=== PATIENT | female | born 1970 | race Caucasian/White ===

== ENCOUNTER 2016-04-16 14:14 | Outpatient (CLI) | payer MEDICAID | END 2016-04-16 14:15 | disposition home or self-care (01) | DX: Z12.31 Encounter for screening mammogram for malignant neoplasm of breast (principal) ==

== ENCOUNTER 2016-08-12 15:15 | Emergency (ER) | payer MEDICAID ==
[2016-08-12] MEDS ORDERED: DEXAMETHASONE 10 MG/ML VIAL PO STA (15:41)
[2016-08-12] MEDS ORDERED: SODIUM CHLORIDE 0.9% 1,000 ML IV ONE (15:45)
[2016-08-12] MEDS ORDERED: DEXAMETHASONE 10 MG/ML VIAL ONE (15:48)
[2016-08-12] MEDS ORDERED: KETOROLAC 60 MG/2 ML VIAL IVP STA (16:21)
[2016-08-12] MEDS ORDERED: KETOROLAC 30 MG/ML VIAL ONE (16:35)
== END 2016-08-12 17:00 | disposition home or self-care (01) ==
DX: E86.0 Dehydration (principal); S29.011A Strain of muscle and tendon of front wall of thorax, initial encounter; X58.XXXA Exposure to other specified factors, initial encounter; I10 Essential (primary) hypertension; E78.00 Pure hypercholesterolemia, unspecified; K21.9 Gastro-esophageal reflux disease without esophagitis; F17.200 Nicotine dependence, unspecified, uncomplicated

== ENCOUNTER 2017-04-21 09:45 | Outpatient (CLI) | payer MEDICAID ==
--- NOTE | 2017-04-22 18:16 | Mammography Report ---
DATE OF SERVICE: 04/21/2017 DIGITAL SCREENING MAMMOGRAM: 04/21/2017 CLINICAL INDICATION: A 47-year-old for screening. COMPARISON: 04/2016, 08/2013, 07/2012, 08/2010. TECHNIQUE: Routine CC and MLO projections were obtained of the breasts. The breasts again demonstrate scattered fibroglandular densities bilaterally. Coarse and punctate, typically benign calcifications are present. Intramammary lymph nodes are stable. No suspicious masses, clustered microcalcifications, or regions of architectural distortion are identified. IMPRESSION: Benign findings. RECOMMENDATIONS: Routine annual screening unless otherwise clinically indicated. BIRADS category 2 benign findings. STANDARD QUALIFYING STATEMENTS 1. This examination was reviewed with the aid of Computed-Aided Detection (CAD). 2. A negative or benign imaging report should not delay biopsy if clinically suspicious findings are present. Consider surgical consultation if warranted. More than 5% of cancers are not identified by imaging. 3. Dense breasts may obscure an underlying neoplasm. TD: 04/22/2017 19:15
== END 2017-04-21 09:46 | disposition home or self-care (01) ==
LOC: DI 09:45
PROVIDERS: ATTEND Nurse Practitioner Obstetrics & Gynecology
DX: Z12.39 Encounter for other screening for malignant neoplasm of breast (principal)
CPT/HCPCS: 77067

== ENCOUNTER 2017-05-07 11:30 | Outpatient (CLI) | payer MEDICAID ==
[2017-05-07 18:56] LABS: BASOPHILS # (AUTO) 0.1 10^3/uL (0.0-0.1); BASOPHILS % (AUTO) 1.2 %; EOSINOPHILS # (AUTO) 0.2 10^3/uL (0.0-0.7); EOSINOPHILS % (AUTO) 4.4 %; HGB - HEMOGLOBIN 14.5 g/dL (12.0-16.0); LYMPHOCYTES # (AUTO) 2.2 10^3/uL (1.5-3.5); LYMPHOCYTES % (AUTO) 39.3 %; MEAN CORPUSCULAR HGB CONC 32.9 g/dL (32.0-36.0); MEAN CORPUSCULAR VOLUME 103.3 fL (81.0-99.0); MEAN PLATELET VOLUME 8.7 fL (7.9-10.8); MONOCYTES # (AUTO) 0.5 10^3/uL (0.0-1.0); MONOCYTES % (AUTO) 9.8 %; NEUTROPHILS # (AUTO) 2.5 10^3/uL (1.5-6.6); NEUTROPHILS % (AUTO) 45.3 %; PLT - PLATELET COUNT 171 10^3/uL (130-450); RED BLOOD COUNT 4.26 10^6/uL (4.20-5.40); RED CELL DISTRIBUTION WIDTH 15.2 % (12.0-15.0); WHITE BLOOD COUNT 5.6 x10^3/uL (4.8-10.8)
[2017-05-07 19:10] LABS: ALBUMIN 3.8 g/dL (3.2-5.5); ALBUMIN/GLOBULIN RATIO 1.2 (1.0-2.2); ALKALINE PHOSPHATASE 80 IU/L (42-121); ALT ALANINE AMINOTRANSFERASE 47 IU/L (10-60); AST ASPARTATE AMINOTRANSFERASE 40 IU/L (10-42); BILIRUBIN,TOTAL 0.7 mg/dL (0.2-1.0); BUN - BLOOD UREA NITROGEN 9 mg/dL (6-20); CALCIUM 9.2 mg/dL (8.5-10.3); CARBON DIOXIDE - CO2 21 mmol/L (21-32); CHLORIDE 109 mmol/L (101-111); CHOL/HDL RATIO 3.7 (<4.4); CHOLESTEROL 181 mg/dL; CREATININE 0.6 mg/dL (0.4-1.0); GFR - MDRD 107 (>89); GLUCOSE 128 mg/dL (70-100); HDL CHOLESTEROL 49 mg/dL; SODIUM 137 mmol/L (135-145); TOTAL PROTEIN 6.9 g/dL (6.7-8.2)
[2017-05-07 19:30] LABS: LDL CHOLESTEROL,DIRECT 77 mg/dL; LDLD/HDL RATIO 1.6 (<4.4)
== END 2017-05-07 11:31 | disposition home or self-care (01) ==
LOC: LAB.N 11:30
PROVIDERS: ATTEND Nurse Practitioner Gerontology
DX: I10 Essential (primary) hypertension (principal)
CPT/HCPCS: 36415; 80053; 80061; 83721; 85025

== ENCOUNTER 2017-05-28 08:00 | Outpatient (CLI) | payer MEDICAID ==
[2017-05-28 13:05] LABS: HB2 TOTAL 16.5 g/dL; HEMOGLOBIN A1C 0.63 g/dL; HEMOGLOBIN A1C % 5.6 % (4.6-6.2)
== END 2017-05-28 08:01 | disposition home or self-care (01) ==
LOC: LAB.N 08:00
PROVIDERS: ATTEND Nurse Practitioner Gerontology
DX: R73.9 Hyperglycemia, unspecified (principal)
CPT/HCPCS: 36415; 83036

== ENCOUNTER 2018-01-27 12:09 | Outpatient (CLI) | payer MEDICAID ==
[2018-01-27 13:03] LABS: CHOL/HDL RATIO 4.9 (<4.4); CHOLESTEROL 267 mg/dL; HDL CHOLESTEROL 54 mg/dL
[2018-01-27 13:26] LABS: LDL CHOLESTEROL,DIRECT 165 mg/dL; LDLD/HDL RATIO 3.1 (<4.4)
== END 2018-01-27 12:10 | disposition home or self-care (01) ==
LOC: LAB 12:09
PROVIDERS: ATTEND Nurse Practitioner Gerontology
DX: E78.1 Pure hyperglyceridemia (principal)
CPT/HCPCS: 36415; 80061; 83721

== ENCOUNTER 2018-08-12 14:12 | Outpatient (CLI) | payer MEDICAID ==
--- NOTE | 2018-08-15 08:32 | Mammography Report ---
Reason: ANNUAL SCREENING Procedure Date: 08/12/2018 Accession Number: [id number] / [id number] Procedure: JANENE - Screening Mammo Dig Bilat CPT Code: FULL RESULT: EXAM: Screening Mammo Dig Bilat DATE: 08/12/2018 3:18 PM CLINICAL HISTORY: Routine screening. No reported personal or family history of breast cancer. TECHNIQUE: (B) - Bilateral CC and MLO views were obtained. COMPARISON: 04/21/2017 through 07/27/2012 PARENCHYMAL PATTERN: (A) - The breasts demonstrate scattered fibroglandular densities bilaterally. FINDINGS: Bilateral breasts: There are no suspicious masses, calcifications, or areas of distortion. IMPRESSION: Negative examination. BI-RADS category 1. RECOMMENDATION: (ANNUAL) - Recommend routine annual screening mammography. BI-RADS CATEGORY: (1) - Negative. STANDARD QUALIFYING STATEMENTS: 1. This examination was not reviewed with the aid of Computer-Aided Detection (CAD). 2. A negative or benign imaging report should not preclude biopsy if clinically suspicious findings are present. 3. Dense breasts may obscure an underlying neoplasm. 4. This examination was reviewed without the aid of 3D breast imaging (tomosynthesis).
== END 2018-08-12 14:13 | disposition home or self-care (01) ==
LOC: DI 14:12
PROVIDERS: ATTEND Nurse Practitioner Gerontology
DX: Z12.31 Encounter for screening mammogram for malignant neoplasm of breast (principal)
CPT/HCPCS: 77067

== ENCOUNTER 2018-10-20 12:02 | Outpatient (CLI) | payer MEDICAID ==
[2018-10-20 19:22] LABS: CHOL/HDL RATIO 5.9 (<4.4); CHOLESTEROL 259 mg/dL; HDL CHOLESTEROL 44 mg/dL; LDL CHOLESTEROL,CALCULATED 149 mg/dL; LDL/HDL RATIO 3.4 (<4.4); VLDL CHOLESTEROL 66 mg/dL
== END 2018-10-20 23:59 | disposition home or self-care (01) ==
LOC: LAB.N 12:02
PROVIDERS: ATTEND Nurse Practitioner Gerontology
DX: E78.5 Hyperlipidemia, unspecified (principal)
CPT/HCPCS: 36415; 80061; 83721

== ENCOUNTER 2019-11-01 07:00 | Outpatient (CLI) | payer MEDICAID | END 2019-11-01 23:59 | disposition home or self-care (01) | LOC: LAB.R 07:00 | PROVIDERS: ATTEND Nurse Practitioner Family | DX: L02.412 Cutaneous abscess of left axilla (principal) | CPT/HCPCS: 81599; 87070; 87075; 87205 ==

== ENCOUNTER 2020-08-21 14:00 | Outpatient (CLI) | payer MEDICAID ==
[2020-08-22 11:57] LABS: BILIRUBIN,URINE NEGATIVE (NEGATIVE); GLUCOSE, URINE (UA) >=1000 mg/dL (NEGATIVE); KETONES,URINE (UA) NEGATIVE (NEGATIVE); LEUKOCYTE ESTERASE, URINE NEGATIVE (NEGATIVE); NITRITE,URINE NEGATIVE (NEGATIVE); OCCULT BLOOD,URINE NEGATIVE (NEGATIVE); PROTEIN,URINE NEGATIVE (NEGATIVE); UROBILINOGEN,URINE 0.2 (NORMAL) E.U./dL (NORMAL)
[2020-08-22 12:02] LABS: CLARITY,URINE CLEAR (CLEAR)
[2020-08-22 12:08] LABS: BACTERIA,URINE Rare /HPF (None Seen); RBC,URINE None Seen /HPF (0-5); SQUAMOUS EPITHELIAL CELL,UR MANY Squamous (<= Few); WBC,URINE 0-3 /HPF (0-5)
[2020-08-22 22:51] LABS: BACTERIAL VAGINOSIS DNA NEGATIVE (NEGATIVE); CANDIDA GLABRATA DNA NEGATIVE (NEGATIVE); CANDIDA GROUP DNA NEGATIVE (NEGATIVE); CANDIDA KRUSEI DNA NEGATIVE (NEGATIVE); TRICHOMONAS VAGINALIS DNA NEGATIVE (NEGATIVE)
== END 2020-08-21 23:59 | disposition home or self-care (01) ==
LOC: LAB.R 14:00
PROVIDERS: ATTEND Nurse Practitioner Obstetrics & Gynecology
DX: R30.0 Dysuria (principal)
CPT/HCPCS: 81001; 87086; 87661; 87801

== ENCOUNTER 2021-07-03 14:24 | Outpatient (CLI) | payer MEDICAID ==
--- NOTE | 2021-07-04 15:09 | Mammography Report ---
BILATERAL DIGITAL SCREENING MAMMOGRAM 3D/2D: 07/03/2021 CLINICAL: Routine screening. Comparison is made to exams dated: 08/12/2018 mammogram, 04/21/2017 mammogram, and 04/16/2016 mammogram - [facility]. There are scattered fibroglandular elements in both breasts. No significant masses, calcifications, or other findings are seen in either breast. There has been no significant interval change. IMPRESSION: NEGATIVE There is no mammographic evidence of malignancy. A 1 year screening mammogram is recommended. This exam was interpreted at Station ID: [id number]. NOTE: For mammograms, a report in lay terms will be sent to the patient. Approximately 15% of breast malignancies will not be visualized mammographically. In the management of a palpable breast mass, a negative mammogram must not discourage biopsy of a clinically suspicious lesion. Electronically Signed By: Amrit Hankins M.D. ar/penrad:07/03/2021 16:20:25 ACR BI-RADS Category 1: Negative 3341F PARENCHYMAL PATTERN: (A) - The breast(s) demonstrate(s) scattered fibroglandular densities. BI-RADS CATEGORY: (1) - 1 RECOMMENDATION: (ANNUAL) - Recommend routine annual screening mammography. [id number] 1 year screening LATERALITY: (B)
== END 2021-07-03 14:25 | disposition home or self-care (01) ==
LOC: DI.N 14:24
PROVIDERS: ATTEND Nurse Practitioner Obstetrics & Gynecology
DX: Z12.31 Encounter for screening mammogram for malignant neoplasm of breast (principal)

== ENCOUNTER 2022-07-29 09:01 | Outpatient (CLI) | payer MEDICAID ==
[2022-07-29 09:17] LABS: BASOPHILS # (AUTO) 0.1 10^3/uL (0.0-0.1); BASOPHILS % (AUTO) 1.1 %; EOSINOPHILS # (AUTO) 0.3 10^3/uL (0.0-0.7); EOSINOPHILS % (AUTO) 2.9 %; HCT - HEMATOCRIT 47.4 % (37.0-47.0); HGB - HEMOGLOBIN 16.8 g/dL (12.0-16.0); LYMPHOCYTES # (AUTO) 2.5 10^3/uL (1.5-3.5); LYMPHOCYTES % (AUTO) 24.2 %; MEAN CORPUSCULAR HEMOGLOBIN 34.3 pg (27.0-31.0); MEAN CORPUSCULAR HGB CONC 35.4 g/dL (32.0-36.0); MEAN CORPUSCULAR VOLUME 96.7 fL (81.0-99.0); MEAN PLATELET VOLUME 10.2 fL (7.9-10.8); MONOCYTES % (AUTO) 9.6 %; NEUTROPHILS # (AUTO) 6.4 10^3/uL (1.5-6.6); PLT - PLATELET COUNT 200 10^3/uL (130-450); RED CELL DISTRIBUTION WIDTH 11.8 % (12.0-15.0); WHITE BLOOD COUNT 10.4 x10^3/uL (4.8-10.8)
[2022-07-29 09:34] LABS: ALBUMIN/GLOBULIN RATIO 1.1 (1.0-2.2); ALKALINE PHOSPHATASE 111 IU/L (42-121); ALT ALANINE AMINOTRANSFERASE 22 IU/L (10-60); AST ASPARTATE AMINOTRANSFERASE 24 IU/L (10-42); BILIRUBIN,TOTAL 0.9 mg/dL (0.2-1.0); BUN - BLOOD UREA NITROGEN 9 mg/dL (6-20); CALCIUM 10.5 mg/dL (8.5-10.3); CARBON DIOXIDE - CO2 22 mmol/L (21-32); CHLORIDE 100 mmol/L (101-111); CHOL/HDL RATIO 7.1 (<4.4); CHOLESTEROL 270 mg/dL; CREATININE 0.8 mg/dL (0.4-1.0); GFR - MDRD 75 (>89); GLUCOSE 347 mg/dL (70-100); HDL CHOLESTEROL 38 mg/dL; POTASSIUM 3.5 mmol/L (3.5-5.0); SODIUM 135 mmol/L (135-145); TOTAL PROTEIN 7.5 g/dL (6.7-8.2); TRIGLYCERIDES 709 mg/dL
[2022-07-29 09:46] LABS: THYROID STIMULATING HORMONE 3.55 uIU/mL (0.34-5.60)
[2022-07-29 10:05] LABS: LDL CHOLESTEROL,DIRECT 158 mg/dL; LDLD/HDL RATIO 4.2 (<4.4)
--- NOTE | 2022-07-29 14:04 | DEXA Report ---
PROCEDURE: Dexa Spine and/or Hip INDICATIONS: POST MENOPAUSAL TECHNIQUE: Dual energy x-ray absorptiometry (DXA) was performed on a Allocade System. Regions measur ed are the AP Spine, femoral neck, and if needed forearm. COMPARISON: None. FINDINGS: Lumbar Spine: Bone Mineral Density 1.248 g/cm/cm,T score 0.6, normal Left Femoral Neck: Bone Mineral Density 0.866 g/cm/cm, T score -1.2, minimal osteopenia Left Hip: Bone Mineral Density 1.08 g/cm/cm,T score 0.6, normal (T score greater or equal to -1.0: NORMAL) (T score from -1.1 to -2.4: OSTEOPENIA) (T score less than or equal to -2.5 to: OSTEOPOROSIS) Impression: Minimal osteopenia within left femoral neck. Patients with diagnosis of osteoporosis or osteopenia should have regular bone mineral density assess ment. For those eligible for Medicare, routine testing is allowed once every 2 years. Testing frequ ency can be increased for patients who have rapidly progressing disease or for those who are receivin g medical therapy to restore bone mass. Reviewed by: Chanel Person MD on 07/29/2022 2:03 PM PDT Approved by: Chanel Person MD on 07/29/2022 2:03 PM PDT Station ID: [id number]
[2022-07-30 12:26] LABS: ESTIMATED AVERAGE GLUCOSE 278 mg/dL (70-100); HEMOGLOBIN A1c% 11.3 % (4.27-6.07)
== END 2022-07-29 09:02 | disposition home or self-care (01) ==
LOC: DI 09:01
PROVIDERS: ATTEND Physician Assistant Medical
DX: Z78.0 Asymptomatic menopausal state (principal); M85.88 Other specified disorders of bone density and structure, other site; Z00.00 Encounter for general adult medical examination without abnormal findings; E78.5 Hyperlipidemia, unspecified; K21.9 Gastro-esophageal reflux disease without esophagitis; E11.65 Type 2 diabetes mellitus with hyperglycemia
CPT/HCPCS: 36415; 80050; 80061; 83036; 83721

== ENCOUNTER 2022-07-29 09:01 | Outpatient (CLI) | payer MEDICAID ==
--- NOTE | 2022-07-30 10:08 | Mammography Report ---
BILATERAL DIGITAL SCREENING MAMMOGRAM 3D/2D: 07/29/2022 CLINICAL: Routine screening. Comparison is made to exams dated: 07/03/2021 mammogram, 08/12/2018 mammogram, 04/21/2017 mammogram, 03/2017 mammogram, and 08/24/2013 mammogram - [facility]. There are scattered areas of fibroglandular density in both breasts (category b / 25%-50% glandular t issue). No significant masses, calcifications, or other findings are seen in either breast. There has been no significant interval change. IMPRESSION: NEGATIVE There is no mammographic evidence of malignancy. A 1 year screening mammogram is recommended. Based on the Tyrer Cuzick model (a risk assessment model) the patients lifetime risk is 6.4% and her 10 year risk is 1.6%. According to the ACR, ACS, and NCCN guidelines, an annual breast MRI exam sandy g with mammogram is recommended if the patients lifetime risk is 20% or greater. This exam was interpreted at Station ID: [id number]. NOTE: For mammograms, a report in lay terms will be sent to the patient. Approximately 15% of breast malignancies will not be visualized mammographically. In the management of a palpable breast mass, a negative mammogram must not discourage biopsy of a clinically suspicious lesion. Electronically Signed By: Oziel coleman/pio:07/29/2022 11:06:39 letter sent: No_Letter ACR BI-RADS Category 1: Negative 3341F PARENCHYMAL PATTERN: (A) - The breast(s) demonstrate(s) scattered fibroglandular densities. BI-RADS CATEGORY: (1) - 1 Mammogram [id number] 1 year screening LATERALITY: (B)
== END 2022-07-29 09:02 | disposition home or self-care (01) ==
LOC: DI 09:01
DX: Z12.31 Encounter for screening mammogram for malignant neoplasm of breast (principal)

== ENCOUNTER 2022-12-01 14:30 | Outpatient (CLI) | payer MEDICAID ==
[2022-12-01 16:31] LABS: CREATININE,URINE 62.5 mg/dL; MICROALBUMIN,URINE < 0.7 mg/dL (0-300.0)
[2022-12-01 20:47] LABS: ESTIMATED AVERAGE GLUCOSE 272 mg/dL (70-100); HEMOGLOBIN A1c% 11.1 % (4.27-6.07)
== END 2022-12-01 14:31 | disposition home or self-care (01) ==
LOC: LAB 14:30
PROVIDERS: ATTEND Obstetrics & Gynecology
DX: E11.8 Type 2 diabetes mellitus with unspecified complications (principal); Z78.0 Asymptomatic menopausal state
CPT/HCPCS: 36415; 82043; 82570; 83001; 83036

== ENCOUNTER 2022-12-14 13:12 | Outpatient (CLI) | payer MEDICAID ==
--- NOTE | 2022-12-14 16:41 | XRAY Report ---
PROCEDURE: Knee 3 View BILAT INDICATIONS: KNEE PAIN,BILATERAL TECHNIQUE: 3 views of the bilateral knee(s) were acquired. COMPARISON: None. FINDINGS: Bones: No fractures or dislocations. No suspicious bony lesions. There is mild to moderate tricom partmental arthritic change bilaterally. No erosions. No osteophytes. Soft tissues: No knee joint effusion. No suspicious soft tissue calcifications or masses. IMPRESSION: Mild to moderate tricompartmental arthritic change, most severe medially. Reviewed by: Chanel Person MD on 12/14/2022 4:39 PM PDT Approved by: Chanel Person MD on 12/14/2022 4:39 PM PDT Station ID: [id number]
== END 2022-12-14 13:13 | disposition home or self-care (01) ==
LOC: DI 13:12
PROVIDERS: ATTEND Physician Assistant Medical
DX: M17.0 Bilateral primary osteoarthritis of knee (principal)

== ENCOUNTER 2023-02-05 11:25 | Emergency (ER) | payer MEDICAID ==
--- NOTE | 2023-02-05 13:50 | ED Physician Documentation ---
PD HPI UPPER EXT INJURY - Stated complaint Stated Complaint: LT LEG PX - Chief complaint Chief Complaint: Ext Problem - History obtained from History obtained from: Patient - Additonal information Additional information: 52-year-old woman with history of sciatica has had a flare for the last 2 weeks after doing some light exercises at home. She has pain in the left low back radiating to the left hip and then down to the medial ankle. She is numb around the medial ankle. No saddle anesthesia, fevers, or incontinence. She does have a history of type 2 diabetes on metformin. PD PAST MEDICAL HISTORY - Past Medical History Past Medical History: Yes Cardiovascular: Hypertension, High cholesterol Respiratory: Asthma Endocrine/Autoimmune: Type 2 diabetes GI: GERD : None Psych: None Musculoskeletal: Osteoarthritis, Osteopenia, Other Derm: None - Past Surgical History Past Surgical History: Yes Ortho: Other - Present Medications Home Medications: Ambulatory Orders Medication Instructions Recorded Confirmed Albuterol Sulfate [Proair Hfa] 8.5 gm IH Q6H PRN 05/24/14 08/12/16 Fluticasone 44 Mcg [Flovent] 1 puffs INH BID 05/24/14 08/12/16 Fluticasone [Flonase] 1 sprays DACIA DAILY 05/24/14 08/12/16 Loratadine 10 mg PO DAILY 05/24/14 08/12/16 Pravastatin Sodium 60 mg PO QPM 05/24/14 08/12/16 diphenhydrAMINE [Benadryl] 50 mg PO HS 05/24/14 08/12/16 raNITIdine [Zantac] 150 mg PO BID 05/24/14 08/12/16 Albuterol Sulf [Ventolin Hfa 1 spray PO DAILY 08/12/16 08/12/16 Inhaler] Flunisolide [Aerospan] 1 spray PO DAILY 08/12/16 08/12/16 HYDROcod/ACETAM 5/325 [[place] 5/325] 1 - 2 tab PO Q6H PRN #15 tablet 02/05/23 Meloxicam [Mobic] 7.5 mg PO BID PRN #20 tablet 02/05/23 - Allergies Allergies/Adverse Reactions: Allergies Allergy/AdvReac Type Severity Reaction Status Date / Time Penicillins AdvReac Intermediate Nausea Verified 02/05/23 11:40 - Social History Does the pt smoke?: Yes Smoking Status: Current every day smoker Does the pt drink ETOH?: Yes ETOH Use: Beer Does the pt have substance abuse?: No - Immunizations Immunizations are current?: Yes PD ED PE NORMAL - Vitals Vital signs reviewed: Yes - General General: Alert and oriented X 3, No acute distress - Abdomen Abdomen: Normal bowel sounds, Soft, Non tender - Back Back: No CVA TTP, No spinal TTP - Derm Derm: Normal color, Warm and dry - Extremities Extremities: Other (Mildly diminished sensation in the left L4 nerve distribution with equal lower extremity reflexes and strength. Normal gait. She is tender in the left sciatic notch. No midline spinal tenderness.) - Neuro Neuro: Alert and oriented X 3, Normal speech Results - Vitals Vitals: Vital Signs - 24 hr 02/05/23 11:32 Temperature 36.3 C L Heart Rate 88 Respiratory 15 Rate Blood Pressure 149/101 H O2 Saturation 100 Oxygen O2 Source Room air PD Medical Decision Making - ED course ED course: This patient has seemingly uncomplicated musculoskeletal back pain. The patient has no "red flags." Specifically denies IV drug use, fevers, incontinence, saddle anesthesia. Spinal epidural abscess was considered, given that the patient has no fever, is not diabetic, has no spinal tenderness, does not use IV drugs, and has no bilateral neurologic symptoms, the diagnosis of spinal epidural abscess is considered exceedingly unlikely. Otherwise though this does seem like sciatica and she is given pain medications and anti-inflammatories. Prednisone is held given her type 2 diabetes. Notified her that she would probably need to follow-up for primary care and referral for PT and given close return precautions. Departure - Departure Disposition: 01 Home, Self Care Clinical Impression: Sciatica of left side Condition: Good Record reviewed to determine appropriate education?: Yes Instructions: ED Sciatica Follow-Up: Aurea Maloney PA-C [Primary Care Provider] - Prescriptions: Meloxicam [Mobic] 7.5 mg PO BID PRN #20 tablet PRN Reason: Pain HYDROcod/ACETAM 5/325 [Ram[place] 5/325] 1 - 2 tab PO Q6H PRN #15 tablet PRN Reason: Pain Comments: You can stop the ibuprofen and substitute the Mobic instead. Follow-up with DAV Maloney, consideration for referral for physical therapy. Return for new or worsening symptoms. I sent your prescription electronically to the [facility] pharmacy. I am prescribing a short course of narcotic pain medication for you. These are potentially dangerous and addictive medications that should be used carefully. These medications may constipate you. Take an cdky-wnq-vjuilbl stool softener (docusate) twice daily with plenty of water while taking these medications. If you go 24 hours without a bowel movement, take hthf-iof-blphcwm miralax, per package instructions. Do not drink or drive while taking these medications. If you received narcotic or sedating medications while in the emergency department, do not drive for 24 hours. Store this medication in a safe, secure place and out of reach of children. It is a violation of federal law to give or sell this medication to another person or to use in a manner other than prescribed. The ED will not refill narcotic prescriptions, including prescriptions lost or stolen. To dispose of unwanted medications: 1. [facility] provides a drop box for medication in pill form only (no liquids) 8:00 am to 4:30 p.m. Wednesday-Wednesday in the lobby of the [facility], [address] [place] [address]. Empty pills into ziplock bag before disposal. Call [phone] for information. 2.[employer] is a free service available to all [facility] residents. Go to [email or web address] Note that many narcotic pain relievers also contain Tylenol/acetaminophen. Please ensure that your total dose of acetaminophen from all sources does not exceed 3 g (3000 mg) per day.
[2023-02-05 14:08] VITALS: BP 138/98; O2SAT 99
== END 2023-02-05 14:01 | disposition home or self-care (01) ==
LOC: ED 11:25
DX: M54.32 Sciatica, left side (principal); I10 Essential (primary) hypertension; E11.9 Type 2 diabetes mellitus without complications; F17.200 Nicotine dependence, unspecified, uncomplicated
CPT/HCPCS: 99282; 99283

== ENCOUNTER 2023-02-16 14:37 | Outpatient (CLI) | payer MEDICAID ==
--- NOTE | 2023-02-16 15:24 | XRAY Report ---
PROCEDURE: Lumbar Spine 2 View INDICATIONS: SCIATICA,LEFT TECHNIQUE: 2 views of the lumbar spine were acquired. COMPARISON: None. FINDINGS: Bones: 5 nnr-jso-efaiyms vertebrae are present. There is normal bony alignment. No vertebral body compression fractures. No suspicious bony lesions. Mild degenerative disc disease throughout the lum bar spine. Mild L3-L4, L4-L5 and L5-S1 facet arthropathy. Soft tissues: Overlying bowel gas pattern is normal. No suspicious soft tissue calcifications. IMPRESSION: Multilevel degenerative disc disease. Multilevel facet arthropathy. No fracture. No acute osseous lesion. If there is continued clinical concern for pathology, then MRI should be considered for further evaluation. Reviewed by: Karen An MD, PhD on 02/16/2023 3:23 PM PST Approved by: Karen An MD, PhD on 02/16/2023 3:23 PM PST Station ID: [id number]
== END 2023-02-16 14:38 | disposition home or self-care (01) ==
LOC: DI 14:37
PROVIDERS: ATTEND Physician Assistant
DX: M54.32 Sciatica, left side (principal); M51.36 Other intervertebral disc degeneration, lumbar region; M47.816 Spondylosis without myelopathy or radiculopathy, lumbar region; M47.817 Spondylosis without myelopathy or radiculopathy, lumbosacral region

== ENCOUNTER 2023-03-04 07:56 | Outpatient (CLI) | payer MEDICAID ==
[2023-03-04 08:47] LABS: ALBUMIN 4.8 g/dL (3.2-5.5); ALBUMIN/GLOBULIN RATIO 1.8 (1.0-2.2); ALKALINE PHOSPHATASE 72 IU/L (42-121); ALT ALANINE AMINOTRANSFERASE 13 IU/L (10-60); AST ASPARTATE AMINOTRANSFERASE 15 IU/L (10-42); BILIRUBIN,TOTAL 0.6 mg/dL (0.2-1.0); BUN - BLOOD UREA NITROGEN 7 mg/dL (6-20); CALCIUM 11.3 mg/dL (8.5-10.3); CARBON DIOXIDE - CO2 25 mmol/L (21-32); CHLORIDE 98 mmol/L (101-111); CHOL/HDL RATIO 2.5 (<4.4); CHOLESTEROL 194 mg/dL; CREATININE 0.7 mg/dL (0.6-1.3); GFR - MDRD 88 (>89); GLUCOSE 157 mg/dL (74-104); HDL CHOLESTEROL 78 mg/dL; LDL CHOLESTEROL,CALCULATED 87 mg/dL; LDL/HDL RATIO 1.1 (<4.4); SODIUM 132 mmol/L (135-145); TOTAL PROTEIN 7.4 g/dL (6.4-8.9); TRIGLYCERIDES 146 mg/dL (48-352); VLDL CHOLESTEROL 29 mg/dL
[2023-03-04 11:06] LABS: ESTIMATED AVERAGE GLUCOSE 128 mg/dL (70-100); HEMOGLOBIN A1c% 6.1 % (4.27-6.07)
== END 2023-03-04 07:57 | disposition home or self-care (01) ==
LOC: LAB 07:56
PROVIDERS: ATTEND Physician Assistant Medical
DX: E11.59 Type 2 diabetes mellitus with other circulatory complications (principal)
CPT/HCPCS: 36415; 80053; 80061; 83036; 83721

== ENCOUNTER 2023-06-09 09:33 | Outpatient (CLI) | payer MEDICAID ==
[2023-06-09 09:55] LABS: CALCIUM, IONIZED 1.31 mmol/L (1.15-1.33); VBG PH 7.365 (7.31-7.41)
[2023-06-09 10:13] LABS: CALCIUM 11.3 mg/dL (8.5-10.3); CREATININE 0.6 mg/dL (0.6-1.3); POTASSIUM 3.4 mmol/L (3.5-4.5)
[2023-06-09 12:11] LABS: ESTIMATED AVERAGE GLUCOSE 94 mg/dL (70-100); HEMOGLOBIN A1c% 4.9 % (4.27-6.07)
== END 2023-06-09 09:34 | disposition home or self-care (01) ==
LOC: LAB 09:33
PROVIDERS: ATTEND Physician Assistant Medical
DX: E11.8 Type 2 diabetes mellitus with unspecified complications (principal); E83.52 Hypercalcemia
CPT/HCPCS: 36415; 80048; 82330; 83036; 83970

== ENCOUNTER 2023-08-16 14:35 | Outpatient (CLI) | payer MEDICAID ==
--- NOTE | 2023-08-16 16:18 | MRI Report ---
Lumbar Spine WO Clinical History: 53 years of age, Female, LOW BACK PAIN. Comparison: No priors available Technique: Multiplanar multisequence lumbar spine MRI without contrast was performed. Findings: Prior surgery: None. Vertebral bodies: Vertebral body heights are maintained. Alignment: Normal. Bone marrow: Heterogeneous marrow signal. Intervertebral discs: Multilevel disc bulge and disc desiccation. The conus medullaris is normal in contour, signal intensity, and location. The tip of the conus is at T12-L1. The following axial levels are detailed below: T12-L1: Mild bilateral facet arthropathy. No central canal stenosis. No right neuroforaminal stenosis . No left neuroforaminal stenosis. L1-L2: Mild bilateral facet arthropathy. No central canal stenosis. No right neuroforaminal stenosis. No left neuroforaminal stenosis. L2-L3: Mild bilateral facet arthropathy. No central canal stenosis. No right neuroforaminal stenosis. No left neuroforaminal stenosis. L3-L4: Mild bilateral facet arthropathy. No central canal stenosis. No right neuroforaminal stenosis. No left neuroforaminal stenosis. L4-L5: Disc bulge. Mild bilateral facet arthropathy. No central canal stenosis. No right neuroforamin al stenosis. Mild left neuroforaminal stenosis. L5-S1: Disc bulge. Mild bilateral facet arthropathy. No central canal stenosis. No right neuroforamin al stenosis. Mild left neuroforaminal stenosis. Visualized sacrum and pelvis: Visualized sacrum is intact. Small bilateral renal cysts. IMPRESSION: 1.Multilevel degenerative changes of the lumbar spine, with mild left neuroforaminal stenosis at L4-5 and L5-S1. 2.Heterogeneous marrow signal, nonspecific. Recommend correlation with CBC. Reviewed by: Demi Herrera MD on 08/16/2023 4:17 PM PDT Approved by: Demi Herrera MD on 08/16/2023 4:17 PM PDT Station ID: [id number]
== END 2023-08-16 14:36 | disposition home or self-care (01) ==
LOC: DI 14:35
PROVIDERS: ATTEND Physician Assistant Medical
DX: M47.816 Spondylosis without myelopathy or radiculopathy, lumbar region (principal); M51.36 Other intervertebral disc degeneration, lumbar region; M47.817 Spondylosis without myelopathy or radiculopathy, lumbosacral region; M51.37 Other intervertebral disc degeneration, lumbosacral region; M48.061 Spinal stenosis, lumbar region without neurogenic claudication; M48.07 Spinal stenosis, lumbosacral region

== ENCOUNTER 2023-10-25 08:42 | Outpatient (CLI) | payer MEDICAID | END 2023-10-25 23:59 | disposition critical access hospital (66) | LOC: EMS 08:42 | DX: E11.649 Type 2 diabetes mellitus with hypoglycemia without coma (principal); R19.7 Diarrhea, unspecified; R61 Generalized hyperhidrosis; Z79.84 Long term (current) use of oral hypoglycemic drugs | CPT/HCPCS: A0425; A0427; A0999 ==

== ENCOUNTER 2023-10-25 08:56 | Emergency (ER) | payer MEDICAID ==
--- NOTE | 2023-10-25 09:53 | ED Physician Documentation ---
History of Present Illness - Stated complaint Stated Complaint: HYPOGLYCEMIA - Chief complaint Chief Complaint: General - History obtained from History obtained from: Patient, EMS - History of Present Illness Timing: Today Pain level max: 0 Pain level now: 0 - Additonal information Additional information: Jesica is a 53-year-old female presents to the emergency department stating that she recently started glimepiride. She had low blood sugar at home today, into the 20's. EMS gave her glucose has well as D10. Blood sugar now up to the 70s. She is asymptomatic currently. The patient did feel nauseous and sweaty this morning when her bloo sugar was low, but symptoms have since resolved. Review of Systems Constitutional: denies: Fever, Chills Nose: denies: Rhinorrhea / runny nose, Congestion Respiratory: denies: Cough GI: denies: Vomiting, Diarrhea Skin: denies: Rash Musculoskeletal: denies: Neck pain, Back pain Neurologic: denies: Headache PD PAST MEDICAL HISTORY - Past Medical History Past Medical History: Yes Cardiovascular: Hypertension, High cholesterol Respiratory: Asthma Endocrine/Autoimmune: Type 2 diabetes GI: GERD : None Psych: None Musculoskeletal: Osteoarthritis, Osteopenia, Other Derm: None - Past Surgical History Past Surgical History: Yes Ortho: Other - Present Medications Home Medications: Ambulatory Orders Medication Instructions Recorded Confirmed Albuterol Sulfate [Proair Hfa] 8.5 gm IH Q6H PRN 05/24/14 08/12/16 Fluticasone 44 Mcg [Flovent] 1 puffs INH BID 05/24/14 08/12/16 Fluticasone [Flonase] 1 sprays DACIA DAILY 05/24/14 08/12/16 Loratadine 10 mg PO DAILY 05/24/14 08/12/16 Pravastatin Sodium 60 mg PO QPM 05/24/14 08/12/16 diphenhydrAMINE [Benadryl] 50 mg PO HS 05/24/14 08/12/16 raNITIdine [Zantac] 150 mg PO BID 05/24/14 08/12/16 Albuterol Sulf [Ventolin Hfa 1 spray PO DAILY 08/12/16 08/12/16 Inhaler] Flunisolide [Aerospan] 1 spray PO DAILY 08/12/16 08/12/16 HYDROcod/ACETAM 5/325 [[place] 5/325] 1 - 2 tab PO Q6H PRN #15 tablet 02/05/23 Meloxicam [Mobic] 7.5 mg PO BID PRN #20 tablet 02/05/23 - Allergies Allergies/Adverse Reactions: Allergies Allergy/AdvReac Type Severity Reaction Status Date / Time Penicillins AdvReac Intermediate Nausea Verified 10/25/23 09:13 - Social History Does the pt smoke?: Yes Smoking Status: Current every day smoker Does the pt drink ETOH?: Yes ETOH Use: Wine, Beer Does the pt have substance abuse?: No - Immunizations Immunizations are current?: Yes - POLST Patient has POLST: No PD ED PE NORMAL - Vitals Vital signs reviewed: Yes - General General: Alert and oriented X 3, No acute distress - HEENT HEENT: PERRL, Moist mucous membranes - Neck Neck: Supple, no meningeal sign - Cardiac Cardiac: RRR, Strong equal pulses - Respiratory Respiratory: No respiratory distress, Clear bilaterally - Abdomen Abdomen: Soft, Non tender, Non distended - Derm Derm: Warm and dry - Extremities Extremities: No edema, No calf tenderness / cord - Neuro Neuro: Alert and oriented X 3 - Psych Psych: Normal mood, Normal affect Results - Vitals Vitals: Vital Signs - 24 hr 10/25/23 10/25/23 09:04 11:20 Temperature 36.7 C 36.1 C L Heart Rate 76 83 Respiratory 25 H 27 H Rate Blood Pressure 115/97 H 123/73 O2 Saturation 96 99 Oxygen O2 Source Room air - Labs Labs: Laboratory Tests 10/25/23 10:36 POC Whole Bld Glucose 155 H PD Medical Decision Making - ED course Complexity details: reviewed results, re-evaluated patient, considered differential, d/w patient ED course: Patient with hypoglycemia today. Likely secondary to her new medication. She is eating and drinking without difficulty in the emergency department. She is tolerating po without difficulty. No recurrent hypoglycemia. Abdomen and soft coming on 10 and understand it. No fevers. No coughing. No recent illnesses. As it is Wednesday morning, we will have her follow up with her doctor's office later today to discuss her medication. She is unsure what her new diabetes medication is and does not know the dosage. Recommend that she hold off on taking it until she speaks with her doctor later today. She is going to check her blood sugar at home throughout the day. She'll return if she worsens. Patient counseled regarding signs and symptoms for which I believe an urgent re- evaluation would be necessary. Patient with good understanding of and agreement to plan and is comfortable going home at this time. This document was made in part using voice recognition software. While efforts are made to proofread this document, sound alike and grammatical errors may occur. Departure - Departure Disposition: Home, Self Care Clinical Impression: Hypoglycemia Condition: Good Instructions: ED Diabetes Hypoglycemia Oral Agent Follow-Up: your,doctor today [Other] Comments: Please make sure to keep checking your blood sugar throughout the day today at home. Please follow-up with your doctor today, call the office to see what they would like you to change your medication to. Do not take the new blood sugar medication again. Forms: PCP List Discharge Date/Time: 10/25/23 11:21
[2023-10-25 11:24] VITALS: BP 123/73; O2SAT 99
== END 2023-10-25 11:21 | disposition home or self-care (01) ==
LOC: EDUNIT# → ED 08:56
DX: E11.649 Type 2 diabetes mellitus with hypoglycemia without coma (principal); I10 Essential (primary) hypertension; E78.00 Pure hypercholesterolemia, unspecified; F17.200 Nicotine dependence, unspecified, uncomplicated; Z79.899 Other long term (current) drug therapy
CPT/HCPCS: 99283